=== PATIENT | male | born 1995 ===

== ENCOUNTER → 2020-07-31 08:22 | Outpatient (CLI) | payer OTHER, MEDICAID, SELFPAY ==
[2020-07-31 20:07] LABS: Iron 136 ug/dL (49-181)
[2020-07-31 20:17] LABS: Percent Iron Saturation 45 % (20-50); Total Iron Binding Capacity 304 ug/dL (261-462)
[2020-07-31 20:36] LABS: Erythrocyte Sedimentation Rate 2 MM/HR (0-15)
[2020-07-31 20:44] LABS: Ferritin 72 ng/mL (18-464)
[2020-07-31 21:15] LABS: Folate 14.1 ng/mL (2.76-20.0); Vitamin B12 224 pg/mL (239-931)
[2020-08-01 04:27] LABS: High Sensitivity CRP - Cardiac 2.8 mg/L (1.0-3.0)
[2020-08-02 04:45] LABS: Homocysteine 11.3 umol/L (0.0-14.5)
[2020-08-02 05:37] LABS: Parathyroid Hormone Int 19 pg/mL (15-65)
[2020-08-03 00:45] LABS: Ionized Calcium 5.3 mg/dL (4.5-5.6)
[2020-08-03 07:59] LABS: Methylmalonic Acid,Serum 204 nmol/L (0-378)
[2020-08-03 13:14] LABS: Calcitonin 5.3 pg/mL (0.0-8.4)
[2020-08-03 15:08] LABS: ANA Screen, IFA Negative (.)
[2020-08-04 07:41] LABS: Deamidated Gliadin Ab IgA 4 units (0-19); Deamidated Gliadin Ab IgG 5 units (0-19); Immunoglobulin A,Qn 173 mg/dL (90-386); t-Transglutaminase IgA <2 U/mL (0-3)
== END ==
PROVIDERS: Visit Provider Family Medicine
DX: E53.8 Deficiency of other specified B group vitamins (principal); E83.52 Hypercalcemia; R10.84 Generalized abdominal pain; R19.4 Change in bowel habit
CPT/HCPCS: 81256; 82308; 82330; 82607; 82728; 82746; 82784; 83090; 83516; 83540; 83550; 83921; 83970; 85651; 86038; 86140